=== PATIENT | male | born 1980 | race Two or more races ===

== ENCOUNTER 2018-07-12 05:45 | Emergency (ER) | payer OTHER ==
[~2018-07-12] VITALS: Ht 185.4 cm; Wt 74.8 kg
[2018-07-12 06:02] VITALS: BP 154/79
[2018-07-12] MEDS ORDERED: TETANUS-DIPTH-ACEL PERTUSSIS 0.5ML SYRG IM ONE (10:45)
== END 2018-07-12 11:14 | disposition home or self-care (01) ==
LOC: EDBD 05:45 → ER 05:53
DX: S09.90XA Unspecified injury of head, initial encounter (principal); V43.52XA Car driver injured in collision with other type car in traffic accident, initial encounter; Y93.89 Activity, other specified; Y99.8 Other external cause status; Y92.410 Unspecified street and highway as the place of occurrence of the external cause
CPT/HCPCS: 70450; 72125; 73502; 90471; 90715